=== PATIENT | female | born 1945 | race Two or more races ===

== ENCOUNTER 2021-10-21 07:54 | Emergency (ER) | payer OTHER ==
[~2021-10-21] VITALS: Ht 154.9 cm; Wt 74.8 kg
[2021-10-21] MEDS ORDERED: AZOR 10-20 MG1 EACH PO (08:22)
[2021-10-21] MEDS ORDERED: KAPVAY0.1 MG PO (08:22)
[2021-10-21] MEDS ORDERED: COZAAR100 MG PO (08:22)
[2021-10-21] MEDS ORDERED: LIPITOR40 M1 PO (08:22)
[2021-10-21] MEDS ORDERED: TOPROL XL200 MG PO (08:22)
== END 2021-10-21 12:23 | disposition home or self-care (01) ==
LOC: ER 07:54
DX: R20.0 Anesthesia of skin (principal); R51.9 Headache, unspecified; I10 Essential (primary) hypertension